=== PATIENT | female | born 1975 | race Caucasian/White ===

== ENCOUNTER 2017-03-30 08:35 | Emergency (ER) | payer MEDICAID, OTHER ==
[~2017-03-30] VITALS: Ht 167.6 cm; Wt 58.2 kg
[~2017-03-30 08:35] MED LIST: IBUP-232 PO; LORTA5 PO
[2017-03-30 08:46] VITALS: BP 115/69; PULSE 80; RESP 20; TEMP 98.1; O2SAT 100
[2017-03-30] MEDS ORDERED: IBUPROFEN 600 MG TAB PO ONE (09:15)
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
[2017-03-30 09:36] LABS: AUTOMATED NEUTROPHIL # 11.1 TH/MM3 (1.8-7.7); BASOPHIL # 0.1 TH/MM3 (0-0.2); BASOPHIL % 0.5 % (0.0-2.0); EOSINOPHIL % 0.2 % (0.0-4.0); HEMATOCRIT 39.3 % (35.0-46.0); HEMO FLAGS DIFF FINAL; LYMPH % 8.8 % (9.0-44.0); LYMPHOCYTE # 1.1 TH/MM3 (1.0-4.8); MEAN CORPUSCULAR HEMOGLOBIN 29.3 PG (27.0-34.0); MEAN CORPUSCULAR HGB CONC 33.6 % (32.0-36.0); MONO % 4.8 % (0.0-8.0); NEUT % 85.7 % (16.0-70.0); PLATELET COUNT 202 TH/MM3 (150-450); RED BLOOD COUNT 4.52 MIL/MM3 (4.00-5.30); RED CELL DISTRIBUTION WIDTH 13.3 % (11.6-17.2); WHITE BLOOD COUNT 12.9 TH/MM3 (4.0-11.0)
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
[2017-03-30 09:57] LABS: ANION GAP 10 MEQ/L (5-15); BLOOD UREA NITROGEN 4 MG/DL (7-18); CHLORIDE 103 MEQ/L (98-107); POTASSIUM 3.3 MEQ/L (3.5-5.1); SODIUM (NA) 139 MEQ/L (136-145)
[2017-03-30 10:00] LABS: GLOMERULAR FILTRATION RATE 93 ML/MIN (>89)
[2017-03-30 10:16] VITALS: BP 119/68; PULSE 62; RESP 16; O2SAT 100
[2017-03-30] MEDS ORDERED: POTASSIUM CHLORIDE 20 MEQ CONTROLLED RELEASE TAB PO ONE (10:30)
[2017-03-30 10:34] VITALS: RESP 16
[2017-03-30] MEDS ORDERED: IBUP-232 PO (10:55)
--- NOTE | 2017-03-31 17:31 | EKG ---
Date Performed: 03/30/2017 Time Performed: 09:16:41 PTAGE: 42 years EKG: Sinus rhythm RSR' in V1, probably normal variant Compared to prior tracing no significant change BORDERLINE ECG PREVIOUS TRACING : 03/08/2014 18.50 DOCTOR: Brian Hunt Interpretating Date/Time 03/31/2017 17:29:40
== END 2017-03-30 12:18 | disposition home or self-care (01) ==
LOC: PHED 08:35
DX: R07.89 Other chest pain (principal); R94.31 Abnormal electrocardiogram [ECG] [EKG]; E87.6 Hypokalemia; Z87.891 Personal history of nicotine dependence
CPT/HCPCS: 71010; 80048; 84484; 85025; 93005; 99285